=== PATIENT | male | born 1980 | race African-American/Black ===

== ENCOUNTER → 2016-11-05 | Outpatient (CLI) | payer OTHER ==
[~2016-11-05] MED LIST: CEFDINIR300 MG PO; GARAMYCIN5 M1 LEFT EYE; MOTRIN600 MG PO; NAPROSYN500 MG PO; NOHOMEMEDS; PREDNISONE20 MG PO; ULTRACET1 TABLET PO; VENTOLIN HFA18 GM IH; ZITHROMAX Z-PA250 MG PO
== END | disposition home or self-care (01) ==
LOC: CDC 15:40
DX: R00.1 Bradycardia, unspecified (principal); R94.31 Abnormal electrocardiogram [ECG] [EKG]; M25.572 Pain in left ankle and joints of left foot; S86.012D Strain of left Achilles tendon, subsequent encounter
CPT/HCPCS: 93000

== ENCOUNTER 2017-06-05 18:37 | Emergency (ER) | payer OTHER ==
[~2017-06-05] VITALS: Ht 193 cm; Wt 142.2 kg
[2017-06-05] MEDS ORDERED: MOTRIN800 MG PO (21:32)
[2017-06-05] MEDS ORDERED: HYDROCHLOROTHIA25 MG PO (21:32)
[2017-06-05] MEDS ORDERED: FIORICET 50-301 EAC1 PO (21:32)
[2017-06-05 21:48] VITALS: BP 159/103
== END 2017-06-05 21:54 | disposition home or self-care (01) ==
LOC: EME 18:37
PROVIDERS: Physician Assistant
DX: J06.9 Acute upper respiratory infection, unspecified (principal); I10 Essential (primary) hypertension; J45.909 Unspecified asthma, uncomplicated; Z76.0 Encounter for issue of repeat prescription
CPT/HCPCS: 87502; 99281; 99284